=== PATIENT | male | born 1965 | race African-American/Black ===

== ENCOUNTER 2021-02-12 07:58 | Emergency (ER) | payer BC, MEDICAID ==
[~2021-02-12] VITALS: Ht 185.4 cm; Wt 112.0 kg
[2021-02-12] MEDS ORDERED: SODIUM CHLORIDE 0.9% 1000ML BAG (SEPSIS BOLUS) IV ONE (08:30)
[2021-02-12 09:35] LABS: CHLORIDE 102 mEq/L (98-107)
[2021-02-12 09:36] LABS: BASOPHILS % 0.3 % (0.0-2.0); EOSINOPHILS % 0.2 % (0.0-5.0); HEMATOCRIT. 45.1 % (42.0-52.0); HEMOGLOBIN. 15.2 g/dL (14.0-18.0); LYMPHOCYTES % 21.6 % (20.0-50.0); MEAN CORPUSCULAR HEMOGLOBIN 30.7 pg (28.0-32.0); MEAN CORPUSCULAR VOLUME 91.1 fL (80.0-94.0); MEAN PLATELET VOLUME 8.9 fl (7.4-10.4); MONOCYTES % 10.6 % (2.0-8.0); NEUTROPHILS % 67.3 % (40.0-76.0); PLATELET 192 x1000/uL (130-400); RED BLOOD CELL COUNT 4.96 mill/uL (4.7-6.1); RED CELL DISTRIBUTION WIDTH 13.2 % (11.6-14.6)
[2021-02-12 12:32] LABS: INR 1.1; PROTHROMBIN TIME 11.4 sec (9.6-11.0)
[2021-02-12] MEDS ORDERED: ALBU6.7H9 INH (14:39)
[2021-02-12] MEDS ORDERED: AZIT500T8 MT (14:39)
[2021-02-12] MEDS ORDERED: AZITHROMYCIN 500 MG TABLET PO ONE (14:45)
[2021-02-12 19:28] VITALS: BP 120/82
== END 2021-02-12 19:46 | disposition home or self-care (01) ==
LOC: ER 07:58 → CANBEDREQ 21:11
DX: U07.1 COVID-19 (principal); J18.9 Pneumonia, unspecified organism; R06.00 Dyspnea, unspecified; Z87.440 Personal history of urinary (tract) infections
CPT/HCPCS: 36415; 71045; 80053; 83605; 83880; 84145; 84484; 85025; 85610; 87040; 87426; 93005; 99285; J7030

== ENCOUNTER 2023-01-29 13:50 | Emergency (ER) | payer MEDICAID ==
[~2023-01-29] VITALS: Ht 185.4 cm; Wt 106.6 kg
[~2023-01-29 13:50] MED LIST: ALBU6.7H3 INH; AZIT500T8 MT
[2023-01-29 14:10] VITALS: BP 132/88; PULSE 78; RESP 18; TEMP 97.8; O2SAT 98
[2023-01-29] MEDS ORDERED: KETOROLAC 30MG/ML VIAL IM ONE (14:30)
[2023-01-29] MEDS ORDERED: NAPR-1176 MT (14:53)
== END 2023-01-29 15:47 | disposition home or self-care (01) ==
LOC: ER 13:50
DX: M25.561 Pain in right knee (principal)
CPT/HCPCS: 96372; 99283; J1885; Z7610